=== PATIENT | female | born 1980 | race African-American/Black ===

== ENCOUNTER 2020-11-24 09:38 | Emergency (ER) | payer OTHER ==
[~2020-11-24] VITALS: Ht 154.9 cm; Wt 69.1 kg
[2020-11-24 10:23] LABS: PLATELET COUNT 178 K/uL (152-353)
[2020-11-24 11:10] VITALS: BP 114/73; TEMP 99.5
== END 2020-11-24 11:10 | disposition home or self-care (01) ==
LOC: ED 09:38
PROVIDERS: Emergency Medicine
DX: U07.1 COVID-19 (principal); J12.82 Pneumonia due to coronavirus disease 2019
CPT/HCPCS: 80048; 85027; 85379; 96372; 99283; J0696; J1100

== ENCOUNTER 2022-09-17 15:29 | Outpatient (CLI) | payer OTHER | END 2022-09-17 20:11 | disposition home or self-care (01) | LOC: RAD 15:29 | PROVIDERS: ATTEND Nurse Practitioner Family | DX: R07.89 Other chest pain (principal) ==